=== PATIENT | female | born 1990 | race Caucasian/White ===

== ENCOUNTER 2017-10-11 07:11 | Inpatient (IN) | payer OTHER ==
[2017-10-11] MEDS ORDERED: MISOPROSTOL 200 MCG TAB PR ×2 (11:00→21:00)
[2017-10-11] MEDS ORDERED: METHYLERGONOVINE 0.2 MG INJ IM ×2 (11:00→21:00)
[2017-10-11] MEDS ORDERED: CARBOPROST 250 MCG INJ IM ×2 (11:00→21:00)
[2017-10-11] MEDS ORDERED: OXYTOCIN 30 UNITS/LR 500 ML IV ×3 (11:00→21:00)
[2017-10-11 11:03] LABS: ADD MAN DIFF? NO
[2017-10-11] MEDS: LACTATED RINGER'S 1,000 ML IV* ×2 (11:07→15:12)
[2017-10-11 11:11] LABS: WHITE BLOOD COUNT 8.3 10^3/ul (4.8-10.8)
[2017-10-11 11:11] LABS: ABNORMAL IP MESSAGE 1; BASOPHILS % 0.2 % (0.0-2.0); EOSINOPHILS # 0.1 10^3/ul (0.0-0.5); EOSINOPHILS % 0.7 % (0.0-7.0); HEMATOCRIT 34.8 % (37.0-47.0); HEMOGLOBIN 10.7 g/dl (12.0-16.0); LYMPHOCYTES # 2.5 10^3/ul (0.8-2.9); LYMPHOCYTES % 29.5 % (15.0-51.0); MEAN CORPUSCULAR HEMOGLOBIN 23.5 pg (29.0-33.0); MEAN CORPUSCULAR HGB CONC 30.7 g/dl (32.0-37.0); MEAN CORPUSCULAR VOLUME 76.3 fl (82.0-101.0); MONOCYTE # 0.6 10^3/ul (0.3-0.9); MONOCYTES % 6.6 % (0.0-11.0); NEUTROPHIL # 5.2 10^3/ul (1.6-7.5); NEUTROPHILS % 62.3 % (39.0-77.0); PLATELET COUNT 116 10^3/UL (140-415); RED BLOOD COUNT 4.56 10^6/ul (4.20-5.40); RED CELL DISTRIBUTION WIDTH 16.8 % (11.5-14.5)
[2017-10-11 11:25] LABS: POSITIVE DIFF @See below
[2017-10-11 12:20] LABS: PT RATIO 0.9
[2017-10-11 12:29] LABS: HEPATITIS B SURFACE ANTIGEN NEGATIVE (NEGATIVE)
[2017-10-11] MEDS: AMPICILLIN 2 GM/NS (PMX) 100 ML IVPB (12:42)
[2017-10-11 13:27] LABS: INR 0.89; PARTIAL THROMBOPLASTIN TIME 26.4 Sec (25.0-35.0); PROTIME 12.1 Sec (11.9-14.9)
[2017-10-11] MEDS ORDERED: FENTAnyl 2MCG/ML-ROPIV 0.2% 100 ML (13:51)
[2017-10-11 15:12] LABS: RAPID PLASMA REAGIN NONREACTIVE (NR)
[2017-10-11] MEDS: OXYTOCIN 30 UNITS/LR 500 ML IV ×2 (16:10→19:01)
[2017-10-11] MEDS: AMPICILLIN 1 GM/NS (PMX) 50 ML IVPB (16:56)
[2017-10-11] MEDS: LIDOCAINE 1% (MPF) 30 ML INJ INJ (19:02)
[2017-10-11] MEDS: MINERAL OIL LIGHT 10 ML VIAL TOP (19:02)
[2017-10-11] MEDS: SENNA/DOCUSATE NA (8.6MG/50MG) TAB PO (21:00)
[2017-10-11] MEDS ORDERED: HYDROCODONE/APAP (5/325) TAB PO (21:00)
[2017-10-11] MEDS ORDERED: ZOLPIDEM 5 MG TAB PO (21:00)
[2017-10-11] MEDS ORDERED: DIBUCAINE 1% 30 GM OINT PR (21:00)
[2017-10-11] MEDS: MAGNESIUM HYDROXIDE 30ML CUP PO (21:00)
[2017-10-12] MEDS: IBUPROFEN 600 MG TAB PO ×4 (00:22→17:40)
[2017-10-12] MEDS: CEPHALEXIN 500 MG CAP PO ×4 (00:22→17:40)
[2017-10-12] MEDS: BENZOCAINE 20% 56 ML SPRAY TOP (00:23)
[2017-10-12] MEDS: LACTATED RINGER'S 1,000 ML IV* ×2 (00:23→04:51)
[2017-10-12] MEDS: LANOLIN 7 GM TUBE TOP (00:24)
[2017-10-12] MEDS: WITCH HAZEL/GLYCERIN PAD PR (00:24)
[2017-10-12] MEDS: MAGNESIUM HYDROXIDE 30ML CUP PO ×2 (08:45→20:42)
[2017-10-12] MEDS: SENNA/DOCUSATE NA (8.6MG/50MG) TAB PO ×2 (08:45→20:42)
[2017-10-12] MEDS: HYDROCODONE/APAP (5/325) TAB PO (08:50)
[2017-10-12 08:57] LABS: ADD MAN DIFF? NO
[2017-10-12 09:01] LABS: ABNORMAL IP MESSAGE 1; BASOPHILS % 0.2 % (0.0-2.0); EOSINOPHILS # 0.1 10^3/ul (0.0-0.5); EOSINOPHILS % 0.8 % (0.0-7.0); HEMATOCRIT 33.3 % (37.0-47.0); LYMPHOCYTES # 2.2 10^3/ul (0.8-2.9); MEAN CORPUSCULAR HEMOGLOBIN 22.8 pg (29.0-33.0); MONOCYTE # 0.7 10^3/ul (0.3-0.9); MONOCYTES % 6.8 % (0.0-11.0); NEUTROPHIL # 6.9 10^3/ul (1.6-7.5); NEUTROPHILS % 69.5 % (39.0-77.0); PLATELET COUNT 126 10^3/UL (140-415); RED BLOOD COUNT 4.38 10^6/ul (4.20-5.40); RED CELL DISTRIBUTION WIDTH 17.4 % (11.5-14.5)
[2017-10-12 09:01] LABS: WHITE BLOOD COUNT 9.9 10^3/ul (4.8-10.8)
[2017-10-12 09:04] LABS: POSITIVE DIFF @See below
[2017-10-13] MEDS: CEPHALEXIN 500 MG CAP PO ×4 (00:22→18:10)
[2017-10-13] MEDS: IBUPROFEN 600 MG TAB PO ×4 (00:23→18:11)
[2017-10-13] MEDS: HYDROCODONE/APAP (5/325) TAB PO ×2 (04:25→13:53)
[2017-10-13] MEDS: VARICELLA VACCINE LIVE/PF 1,350 UNIT/0.5 ML ML SC* (08:26)
[2017-10-13] MEDS: DIPHTH/TET/ACEL PERTUSS (ADULT) 0.5 ML VIAL IM* (08:26)
[2017-10-13] MEDS: SENNA/DOCUSATE NA (8.6MG/50MG) TAB PO (08:34)
[2017-10-13] MEDS: MAGNESIUM HYDROXIDE 30ML CUP PO (08:34)
[2017-10-13] MEDS: MEASLES,MUMPS,RUBELLA VACCINE INJ SC* (15:30)
== END 2017-10-13 19:00 | disposition home or self-care (01) | DRG 775 ==
LOC: OBT 07:11 → L-D 07:11 → OBT 10:20 → L-D 10:20 → PP1 20:45
PROVIDERS: Obstetrics & Gynecology
PROC: 10E0XZZ Delivery of Products of Conception, External Approach (ICD-10-PCS; principal; 2017-10-11)
PROC: 0HQ9XZZ Repair Perineum Skin, External Approach (ICD-10-PCS; 2017-10-11)
PROC: 3E033VJ Introduction of Other Hormone into Peripheral Vein, Percutaneous Approach (ICD-10-PCS; 2017-10-11)
DX: O70.0 First degree perineal laceration during delivery (principal); O99.213 Obesity complicating pregnancy, third trimester; E66.01 Morbid (severe) obesity due to excess calories; Z68.34 Body mass index [BMI] 34.0-34.9, adult; Z3A.39 39 weeks gestation of pregnancy; Z37.0 Single live birth
CPT/HCPCS: 62319; 85025; 85610; 85730; 86592; 86850; 86900; 86901; 87340